=== PATIENT | male | born 1960 | race Caucasian/White ===

== ENCOUNTER → 2018-07-09 10:21 | Outpatient (CLI) | payer OTHER, SELFPAY ==
--- NOTE | 2018-07-09 | DI.RAD.S_ITS ---
PROCEDURE: XR SHOULDER LT MIN 2V INDICATIONS: LEFT SHOULDER PAIN TECHNIQUE: 3 views of the shoulder were acquired. COMPARISON: [facility], , SHOULDER MINIMUM 2VIEW RIGHT, 06/25/2016, 11:43. FINDINGS: Bones: No fractures or dislocations. No suspicious bony lesions. Visualized ribs appear intact. Acromioclavicular and glenohumeral joints degeneration is present. 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 Dictated by: Riki Velez M.D. on 07/09/2018 at 11:27 Approved by: Riki Velez M.D. on 07/09/2018 at 11:35
== END ==
LOC: RAD 10:24
PROVIDERS: PCP Family Medicine; Visit Provider Family Medicine
DX: M25.512 Pain in left shoulder (principal); M19.012 Primary osteoarthritis, left shoulder; M75.32 Calcific tendinitis of left shoulder
CPT/HCPCS: 73030

== ENCOUNTER → 2019-01-27 08:55 | Outpatient (CLI) | payer OTHER, SELFPAY ==
--- NOTE | 2019-01-27 | DI.US.S_ITS ---
PROCEDURE: US ABDOMEN COMPLETE INDICATIONS: ABD DISTENSION (GASEOUS) TECHNIQUE: Real-time scanning was performed of the abdominal and retroperitoneal organs, with image documentation. COMPARISON: None. FINDINGS: Liver: The liver demonstrates diffusely increased echotexture without focal abnormalities consistent with chronic hepatocellular disease/hepatic steatosis. Gallbladder: Gallbladder is normal in sonographic appearance without gallstones, gallbladder wall thickening, pericholecystic fluid, or abnormal sonographic Boyle's. Biliary ducts: Intrahepatic bile ducts are non-dilated. Extrahepatic bile duct caliber measures 6 mm. Normal is 6-7 mm or less in diameter, or 10 mm or less post-cholecystectomy. Pancreas: Visualized portions of the pancreas are sonographically normal. Spleen: Spleen is normal in size and homogeneous in echotexture. Kidneys: Kidneys are normal in size and echotexture. Right kidney measures 12.1 cm long; left kidney measures 11.4 cm long. No hydronephrosis or nephrolithiasis. No solid masses. Aorta: Visualized aorta is normal in caliber at less than 3 cm. Iliacs: Proximal common iliac arteries are normal in caliber at less than 2.5 cm. IVC: Intrahepatic inferior vena cava is patent. Miscellaneous: No free abdominal fluid. The reported anterior midline abdominal wall hernia is not visualized sonographically. IMPRESSION: 1. The liver demonstrates diffusely increased echotexture without focal abnormalities consistent with chronic hepatocellular disease/hepatic steatosis. Consider correlation with LFTs. 2. The reported midline anterior abdominal hernia could not be visualized sonographically on today's evaluation. If there is persistent clinical concern, consider evaluation with CT. Dictated by: Lizandro Alcantara M.D. on 01/27/2019 at 11:55 Approved by: Lizandro Alcantara M.D. on 01/27/2019 at 11:59
[2019-01-27 10:47] LABS: Add Manual Diff / Slide Review NO; Basophils Absolute Auto 0 /uL (0-100); Basophils Percent Auto 0.8 % (0-2); Eosinophils Absolute Auto 200 /uL (0-450); Eosinophils Percent Auto 3.7 % (2-4); Hematocrit 46.3 % (41-53); Hemoglobin 16.1 g/dL (13.5-17.5); Lymphocytes Absolute Auto 1500 /uL (1100-4500); Lymphocytes Percent Auto 27.9 % (25-40); Mean Corpuscular HGB Conc 34.8 % (30-36); Mean Corpuscular Hemoglobin 31.5 PG (26-34); Mean Corpuscular Volume 90.6 fL (80-100); Monocytes Absolute Auto 400 /uL (0-900); Monocytes Percent Auto 7.8 % (3-14); Neutrophils Absolute Auto 3200 /uL (1500-7000); Neutrophils Percent Auto 59.8 % (50-75); Platelet Count 174 X10^3/uL (150-400); Red Blood Cell Count 5.11 X10^6/uL (4.5-5.9); White Blood Cell Count 5.3 X10^3/uL (4.5-11.0)
[2019-01-27 10:56] LABS: Alanine Aminotransferase 79 IU/L (21-72); Albumin 4.5 g/dL (3.5-5.0); Albumin Globulin Ratio 1.5 (1.0-2.8); Alkaline Phosphatase 41 U/L (38-126); Aspartate Aminotransferase 48 IU/L (17-59); BUN Creatinine Ratio 14.5 (6-22); Bilirubin Total 0.6 mg/dL (0.2-1.3); Blood Urea Nitrogen 16 mg/dL (9-20); Calcium 9.3 mg/dL (8.4-10.2); Carbon Dioxide 28 mmol/L (22-32); Chloride 103 mmol/L (98-107); Cholesterol 187 mg/dL (140-199); Estimated Glomerular Filt Rate > 60.0 mL/min (>60); Gamma Glutamyl Transpeptidase 62 U/L (15-73); Globulin 3.1 g/dL (1.7-4.1); Glucose 100 mg/dL (70-100); HDL Cholesterol 37 mg/dL (40-60); HEMOLYSIS < 15 (0-50); LDL Cholesterol Calculated 106 mg/dL (<100); Potassium 4.7 mmol/L (3.4-5.1); Sodium 141 mmol/L (137-145); Total Protein 7.6 g/dL (6.3-8.2); Triglycerides 218 mg/dL (35-150)
[2019-01-27 11:27] LABS: Prostate Specific Antigen 0.664 ng/mL (0.10-4.00)
[2019-01-27 11:29] LABS: Thyroid Stimulating Hormone 2.36 uIU/mL (0.47-4.68)
[2019-01-27 12:02] LABS: Folate 10.4 ng/mL (2.76-20.0); Vitamin B12 757 pg/mL (239-931)
== END ==
PROVIDERS: PCP Student in an Organized Health Care Education/Training Program; Visit Provider Nurse Practitioner Family
DX: R14.0 Abdominal distension (gaseous) (principal); K43.9 Ventral hernia without obstruction or gangrene; K76.0 Fatty (change of) liver, not elsewhere classified; R73.01 Impaired fasting glucose; R53.83 Other fatigue; Z12.11 Encounter for screening for malignant neoplasm of colon; Z13.220 Encounter for screening for lipoid disorders
CPT/HCPCS: 36415; 76700; 80053; 80061; 82274; 82607; 82746; 82977; 83036; 84153; 84443; 85025

== ENCOUNTER 2020-05-02 15:05 | Emergency (ER) | payer OTHER, SELFPAY ==
[2020-05-02 15:05] VITALS: BP 214/106; PULSE 77; RESP 18; TEMP 37.1; O2SAT 95; BMI 32.2
[2020-05-02 15:40] VITALS: PULSE 75; RESP 18; O2SAT 96
[2020-05-02 15:47] LABS: COVID19 -Nasal RAPID Negative (Negative)
--- NOTE | 2020-05-02 15:47 | PC.NURSE ---
Reports not feeling well since friday, fever, shortness of breath, chest tightness - left lower chest/upper abdomen. History of hypertension/asthma.
[2020-05-02 16:00] VITALS: BP 196/120; PULSE 76; RESP 24; O2SAT 95
--- NOTE | 2020-05-02 16:01 | DI.RAD.S_ITS ---
PROCEDURE: XR CHEST 1V INDICATIONS: short of breath TECHNIQUE: One view of the chest was acquired. COMPARISON: [facility], CR, XR SHOULDER 2+ VIEWS RIGHT, 10/12/2019, 13:32. [facility], CR, XR SHOULDER 2+ VIEWS LEFT, 07/24/2018, 13:09. [facility], CR, CHEST 2 VIEW, 06/07/2015, 16:15. [facility], CR, CHEST 1 VIEW, 08/17/2015, 11:02. FINDINGS: Surgical changes and devices: None. Lungs and pleura: Lungs are clear. No pleural effusions or pneumothorax. Mediastinum: Mediastinal contours appear normal. Heart size is normal. Bones and chest wall: No suspicious bony lesions. There is been postoperative resection of the right distal clavicle. Age-appropriate bony degenerative changes are seen. Overlying soft tissues appear unremarkable. IMPRESSION: Limited portable chest examination, without a significant cardiopulmonary abnormality identified. Postoperative right distal clavicle resection. Dictated by: Omi Schulte M.D. on 05/02/2020 at 15:31 Approved by: Omi Schulte M.D. on 05/02/2020 at 15:32
--- NOTE | 2020-05-02 16:04 | ED_ITS ---
HPI - Chest Pain General Chief Complaint: Chest Pain Stated Complaint: chest pain, short of breath Time Seen by Provider: 05/02/20 15:17 Source: patient Mode of arrival: Wheelchair Limitations: no limitations History of Present Illness HPI narrative: Patient is a 59-year-old male with history of hypertension presenting with shortness of breath fever and body aches concern for COVID. 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 His extreme fatigue and feels short of breath with exertion. He also has having some chest tightness with exertion but correlates that to recent shoulder surgery 3 months ago and feels like he is out of shape. The chest pain is nonradiating. He denies any productive cough. He has not lost taste or smell. He denies orthopnea. MD complaint: chest pain and other (Shortness of breath) Onset (ago): day(s) (3) Onset: during exertion Related Data Home Medications Medication Instructions Recorded Confirmed oxycodone 5 mg PO PRN #0 12/10/16 losartan 50 mg PO DAILY 05/02/20 05/02/20 Previous Rx's Medication Instructions Recorded cyclobenzaprine 10 mg PO TIDP PRN #20 tab 12/03/16 prednisone 40 mg PO QDAY #8 tab 12/03/16 meloxicam [Mobic] 7.5 mg PO BIDCC PRN #20 tab 12/10/16 Allergies Allergy/AdvReac Type Severity Reaction Status Date / Time No Known Drug Allergies Allergy Unknown Unverified 07/30/17 12:33 cyclobenzaprine AdvReac Intermediate Mood Unverified 07/30/17 12:33 [From FLEXERIL] swings/increased agitation Review of Systems Review of Systems ROS Unobtainable: All systems reviewed & are unremarkable except as noted in HPI and below Constitutional Constitutional: Denies chills, Denies fever(s), Denies lethargy and Denies weakness Cardiovascular Cardiovascular: Denies syncope, Denies rapid heart rate, Reports dyspnea and Reports dyspnea on exertion Respiratory Respiratory: Reports dyspnea and Reports dyspnea on exertion Gastrointestinal Gastrointestinal: Denies abdominal pain, Denies change in bowel habits, Denies diarrhea, Denies nausea and Denies vomiting Musculoskeletal Musculoskeletal: Denies back pain and Denies myalgias Integumentary/Breasts Skin/Breast: Denies pruritus, Denies erythema, Denies rash and Denies wounds Neurologic Neurologic: Denies syncope and Denies weakness Patient History Medical History (Updated 05/02/20 @ 17:27 by Missy Moss DO) Hypertension Social History Smoking Status: Never smoker Smoking Status: Never smoker alcohol intake frequency: 0-2 drinks per day Substance Use Type: does not use Exam Initial Vital Signs Initial Vital Signs: Vital Signs Temperature 98.8 F 05/02/20 15:05 Pulse Rate 77 05/02/20 15:05 Respiratory Rate 18 05/02/20 15:05 Blood Pressure 214/106 H 05/02/20 15:05 Pulse Oximetry 95 05/02/20 15:05 GENERAL: Well-appearing, well-nourished and in no acute distress. HEENT: Head atraumatic,EOMI, pupils reactive, face symmetric, moist mucous membranes CARDIOVASCULAR: Regular rate and rhythm without murmurs, rubs or gallops. RESPIRATORY: Breath sounds equal bilaterally, no wheezes rales or rhonchi. ABDOMEN: Soft, nontender. Normoactive bowel sounds all 4 quadrants. No guarding or rebound. EXTREMITIES: Normal range of motion, no clubbing or edema. Neurovascularly intact NEUROLOGICAL: Alert and oriented x4.Normal gait and speech. Cranial nerves II through XII grossly intact. SKIN: Warm, dry, no laceration, no petechiae, no rashes or lesions. Course Orders Ordered: ED Orders 05/02/20 15:11 EKG-12 Lead Routine 05/02/20 15:14 COVID19 Stat 05/02/20 15:20 Complete Blood Count AUTO DIFF Stat Comprehensive Metabolic Panel Stat Influenza A & B (PCR) Stat Lipase Stat NT-proBNP (BNP-Adult 18+) Stat Troponin & CK Cardiac Panel Stat 05/02/20 16:01 XR chest 1V Stat Vital Signs Vital signs: Vital Signs - 8 hr 05/02/20 15:05 05/02/20 15:40 05/02/20 16:00 Temperature 98.8 F Pulse Rate 77 75 76 Respiratory Rate 18 18 24 Blood Pressure 214/106 H 196/120 H Pulse Oximetry 95 96 95 05/02/20 16:30 05/02/20 17:00 05/02/20 17:30 Temperature Pulse Rate 71 73 79 Respiratory Rate 14 15 24 Blood Pressure 151/90 H 162/93 H Pulse Oximetry 94 92 94 MDM - Chest Pain Lab Data Attestation: I reviewed the patient's lab results. Result diagrams: 05/02/20 15:20 05/02/20 15:20 Labs: Lab Results 05/02/20 05/02/20 05/02/20 Range/Units 15:14 15:20 15:20 WBC 6.4 (4.5-11.0) X10^3/uL RBC 5.33 (4.5-5.9) X10^6/uL Hgb 16.5 (13.5-17.5) g/dL Hct 48.2 (41-53) % MCV 90.4 (80-100) fL MCH 30.9 (26-34) PG MCHC 34.2 (30-36) % RDW 13.4 (11.6-14.8) % Plt Count 185 (150-400) X10^3/uL Neut % (Auto) 63.9 (50-75) % Lymph % (Auto) 24.9 L (25-40) % Rhea % (Auto) 7.6 (3-14) % Eos % (Auto) 2.9 (2-4) % Baso % (Auto) 0.7 (0-2) % Neut # (Auto) 4100 (9972-2426) /uL Lymph # (Auto) 1600 (3866-3992) /uL Rhea # (Auto) 500 (0-900) /uL Eos # (Auto) 200 (0-450) /uL Baso # (Auto) 0 (0-100) /uL Sodium 140 (137-145) mmol/L Potassium 4.4 (3.4-5.1) mmol/L Chloride 104 (98-107) mmol/L Carbon Dioxide 29 (22-32) mmol/L BUN 18 (9-20) mg/dL Creatinine 1.02 (0.66-1.25) mg/dL Estimated GFR > 60.0 (>60) mL/min BUN/Creatinine Ratio 17.6 (6-22) Glucose 109 H (70-100) mg/dL Calcium 9.5 (8.4-10.2) mg/dL Total Bilirubin 0.6 (0.2-1.3) mg/dL AST 67 H (17-59) IU/L ALT 99 H (<50) IU/L Alkaline Phosphatase 51 (38-126) U/L Total Creatine Kinase 127 (55-170) U/L CK-MB (CK-2) 1.01 (<2.37) ng/mL CK-MB (CK-2) Rel Index 0.8 L (1.5-5.0) % Troponin I < 0.012 (0.01-0.034) ng/mL NT-Pro-B Natriuret Pep 67 (<125) pg/mL Total Protein 8.6 H (6.3-8.2) g/dL Albumin 4.6 (3.5-5.0) g/dL Globulin 4.0 (1.7-4.1) g/dL Albumin/Globulin Ratio 1.2 (1.0-2.8) Lipase 111 (23-300) U/L SARS-CoV-2 (PCR) Negative (Negative) Influenza A (RT-PCR) (NEGATIVE) Influenza B (RT-PCR) (NEGATIVE) 05/02/20 Range/Units 15:20 WBC (4.5-11.0) X10^3/uL RBC (4.5-5.9) X10^6/uL Hgb (13.5-17.5) g/dL Hct (41-53) % MCV (80-100) fL MCH (26-34) PG MCHC (30-36) % RDW (11.6-14.8) % Plt Count (150-400) X10^3/uL Neut % (Auto) (50-75) % Lymph % (Auto) (25-40) % Rhea % (Auto) (3-14) % Eos % (Auto) (2-4) % Baso % (Auto) (0-2) % Neut # (Auto) (8060-7156) /uL Lymph # (Auto) (3228-7186) /uL Rhea # (Auto) (0-900) /uL Eos # (Auto) (0-450) /uL Baso # (Auto) (0-100) /uL Sodium (137-145) mmol/L Potassium (3.4-5.1) mmol/L Chloride (98-107) mmol/L Carbon Dioxide (22-32) mmol/L BUN (9-20) mg/dL Creatinine (0.66-1.25) mg/dL Estimated GFR (>60) mL/min BUN/Creatinine Ratio (6-22) Glucose (70-100) mg/dL Calcium (8.4-10.2) mg/dL Total Bilirubin (0.2-1.3) mg/dL AST (17-59) IU/L ALT (<50) IU/L Alkaline Phosphatase (38-126) U/L Total Creatine Kinase (55-170) U/L CK-MB (CK-2) (<2.37) ng/mL CK-MB (CK-2) Rel Index (1.5-5.0) % Troponin I (0.01-0.034) ng/mL NT-Pro-B Natriuret Pep (<125) pg/mL Total Protein (6.3-8.2) g/dL Albumin (3.5-5.0) g/dL Globulin (1.7-4.1) g/dL Albumin/Globulin Ratio (1.0-2.8) Lipase (23-300) U/L SARS-CoV-2 (PCR) (Negative) Influenza A (RT-PCR) Flu a negative (NEGATIVE) Influenza B (RT-PCR) Flu b negative (NEGATIVE) Imaging Data Chest x-ray: Radiologist's Impression: PROCEDURE: XR CHEST 1V INDICATIONS: short of breath TECHNIQUE: One view of the chest was acquired. COMPARISON: [facility], , XR SHOULDER 2+ VIEWS RIGHT, 10/12/2019, 13:32. [facility], , XR SHOULDER 2+ VIEWS LEFT, 07/24/2018, 13:09. [facility], , CHEST 2 VIEW, 06/07/2015, 16:15. [facility], , CHEST 1 VIEW, 08/17/2015, 11:02. FINDINGS: Surgical changes and devices: None. Lungs and pleura: Lungs are clear. No pleural effusions or pneumothorax. Mediastinum: Mediastinal contours appear normal. Heart size is normal. Bones and chest wall: No suspicious bony lesions. There is been postoperative resection of the right distal clavicle. Age-appropriate bony degenerative changes are seen. Overlying soft tissues appear unremarkable. IMPRESSION: Limited portable chest examination, without a significant cardiopulmonary abnormality identified. Postoperative right distal clavicle resection. Dictated by: Omi Schulte M.D. on 05/02/2020 at 15:31 ECG Data Attestation: I personally reviewed and interpreted this ECG as follows: Prior ECG tracings: available for review Interpretation: Normal sinus rhythm rate 78 p.r. interval 162 QRS [address] changes T-wave noted in lead 3 nonpathologic MDM Narrative Medical decision making narrative: Patient having fever and extreme fatigue ongoing for the last 3 days. Initial COVID test is negative. However there is a suspicion for it, he may need to be retested in the next 5 days. Recommend he quarantine for the next 14 days. Influenza is negative. Blood work and chest x-ray are overall reassuring. He overall is not hypoxic and appears well. Discharge Plan Departure Patient Disposition: Home Clinical Impression: Acute upper respiratory infection Instructions: Coronavirus Disease 2019 Activity Restrictions/Additional Instructions: *You have been diagnosed with it is presumed that you have COVID *What to do: Blood work and x-ray are overall reassuring. It is presumed that you have COVID based on fever. However it may not have been long enough 4 year test to be positive. It is recommended that he quarantine for 14 days since the onset of symptoms. You may need to be retested in about 5 days. It is recommended that you buy a home pulse oximeter and check her oxygen levels randomly. If you're feeling short of breath it recommend lying on your stomach. Return to the ER when oxygen is 88% or below *Continue to take medications as directed *Follow up with your primary care provider in 2-3 days *Return to ER if you should have increasing shortness of breath, oxygen level below 88% or any new, worsening or concerning symptoms Prescriptions: No Action cyclobenzaprine 10 MG tablet 10 mg PO TIDP PRNQty: 20 RF: 0 prednisone 20 MG tablet 40 mg PO QDAY Qty: 8 RF: 0 oxycodone 5 MG tablet 5 mg PO PRNQty: 0 RF: 0 meloxicam [Mobic] 7.5 MG tablet 7.5 mg PO BIDCC PRNQty: 20 RF: 0 losartan 50 mg Tablet 50 mg PO DAILY RF: 0 Referrals: Bhumi Rhodes MD [Primary Care Provider] -
[2020-05-02 16:10] LABS: Add Manual Diff / Slide Review NO; Basophils Absolute Auto 0 /uL (0-100); Basophils Percent Auto 0.7 % (0-2); Eosinophils Absolute Auto 200 /uL (0-450); Eosinophils Percent Auto 2.9 % (2-4); Hematocrit 48.2 % (41-53); Hemoglobin 16.5 g/dL (13.5-17.5); Lymphocytes Absolute Auto 1600 /uL (1100-4500); Lymphocytes Percent Auto 24.9 % (25-40); Mean Corpuscular HGB Conc 34.2 % (30-36); Mean Corpuscular Hemoglobin 30.9 PG (26-34); Mean Corpuscular Volume 90.4 fL (80-100); Monocytes Absolute Auto 500 /uL (0-900); Monocytes Percent Auto 7.6 % (3-14); Neutrophils Absolute Auto 4100 /uL (1500-7000); Neutrophils Percent Auto 63.9 % (50-75); Platelet Count 185 X10^3/uL (150-400); Red Blood Cell Count 5.33 X10^6/uL (4.5-5.9); Red Cell Distribution Width 13.4 % (11.6-14.8); White Blood Cell Count 6.4 X10^3/uL (4.5-11.0)
[2020-05-02 16:16] LABS: Alanine Aminotransferase 99 IU/L (<50); Albumin 4.6 g/dL (3.5-5.0); Albumin Globulin Ratio 1.2 (1.0-2.8); Alkaline Phosphatase 51 U/L (38-126); Aspartate Aminotransferase 67 IU/L (17-59); BUN Creatinine Ratio 17.6 (6-22); Bilirubin Total 0.6 mg/dL (0.2-1.3); Blood Urea Nitrogen 18 mg/dL (9-20); Calcium 9.5 mg/dL (8.4-10.2); Carbon Dioxide 29 mmol/L (22-32); Chloride 104 mmol/L (98-107); Creatine Kinase 127 U/L (55-170); Estimated Glomerular Filt Rate > 60.0 mL/min (>60); Glucose 109 mg/dL (70-100); HEMOLYSIS 27 (0-50); Lipase 111 U/L (23-300); Potassium 4.4 mmol/L (3.4-5.1); Sodium 140 mmol/L (137-145); Total Protein 8.6 g/dL (6.3-8.2)
[2020-05-02 16:28] LABS: NT-proBNP (BNP-Adult 18+) 67 pg/mL (<125); Troponin I < 0.012 ng/mL (0.01-0.034)
[2020-05-02 16:30] VITALS: BP 151/90; PULSE 71; RESP 14; O2SAT 94
[2020-05-02 16:31] LABS: CKMB % Relative Index 0.8 % (1.5-5.0); Creatine Kinase MB 1.01 ng/mL (<2.37)
[2020-05-02 16:46] LABS: Influenza A - CEPHEID Flu A NEGATIVE (NEGATIVE); Influenza B - CEPHEID Flu B NEGATIVE (NEGATIVE)
[2020-05-02 17:00] VITALS: BP 162/93; PULSE 73; RESP 15; O2SAT 92
[2020-05-02 17:30] VITALS: PULSE 79; RESP 24; O2SAT 94
== END 2020-05-02 17:36 | disposition home or self-care (01) ==
PROVIDERS: Emergency Provider Emergency Medicine; PCP Student in an Organized Health Care Education/Training Program
DX: J06.9 Acute upper respiratory infection, unspecified (principal); R06.02 Shortness of breath; R07.9 Chest pain, unspecified; R50.9 Fever, unspecified; Z20.822 Contact with and (suspected) exposure to COVID-19; I10 Essential (primary) hypertension
CPT/HCPCS: 36415; 71045; 80053; 82550; 82553; 83690; 83880; 84484; 85025; 87502; 87635; 93005; 93010; 99283; 99284; C9803

== ENCOUNTER → 2023-05-13 14:05 | Outpatient (ROUT) | payer OTHER, SELFPAY ==
[2023-05-13 14:47] LABS: Influenza A - CEPHEID Flu A POSITIVE (NEGATIVE); Influenza B - CEPHEID Flu B NEGATIVE (NEGATIVE); Respiratory Syncytial Virus Negative (Negative)
[2023-05-13 14:48] LABS: COVID-19 CEPHEID 4-PLEX PCR Negative (Negative)
== END ==
PROVIDERS: PCP Student in an Organized Health Care Education/Training Program; Visit Provider Family Medicine
DX: R05.1 Acute cough (principal)
CPT/HCPCS: 0241U

== ENCOUNTER → 2023-05-13 14:23 | Outpatient (CLI) | payer OTHER, SELFPAY ==
--- NOTE | 2023-05-13 14:27 | DI.RAD.S_ITS ---
PROCEDURE: XR CHEST 2V INDICATIONS: SOB TECHNIQUE: 2 views of the chest were acquired. COMPARISON: [facility], , XR CHEST 1V, 05/02/2020, 16:06. [facility], , CHEST 1 VIEW, 08/17/2015, 11:02. FINDINGS: Surgical changes and devices: None. Lungs and pleura: No consolidation. Possible bronchial wall thickening. No pleural effusions or pneumothorax. Mediastinum: Mediastinal contours are normal. Heart size is normal. Bones and chest wall: No suspicious bony abnormalities. Soft tissues appear unremarkable. IMPRESSION: Possible bronchial wall thickening. This could be due to bronchitis. Dictated by: Daniele Aguilar M.D. on 05/13/2023 at 15:28 Approved by: Daniele Aguilar M.D. on 05/13/2023 at 15:29
== END ==
PROVIDERS: PCP Student in an Organized Health Care Education/Training Program; Referring Provider Family Medicine; Visit Provider Family Medicine
DX: R06.02 Shortness of breath (principal); R05.1 Acute cough
CPT/HCPCS: 0241U; 71046